=== PATIENT | female | born 1980 | race Caucasian/White ===

== ENCOUNTER 2021-01-26 15:56 | Emergency (ER) | payer MEDICAID, OTHER ==
[2021-01-28 13:54] LABS: SARS-CoV-2 PCR by NAA Not Detected (NotDetected)
== END 2021-01-26 17:05 | disposition home or self-care (01) ==
LOC: NAV ERS 15:56
DX: B34.9 Viral infection, unspecified (principal)
CPT/HCPCS: 99283; U0003; U0005

== ENCOUNTER 2023-04-23 12:36 | Emergency (ER) | payer OTHER | END 2023-04-23 14:05 | disposition home or self-care (01) | LOC: NAV ERS 12:36 | DX: J06.9 Acute upper respiratory infection, unspecified (principal); I10 Essential (primary) hypertension; K52.9 Noninfective gastroenteritis and colitis, unspecified; Z20.822 Contact with and (suspected) exposure to COVID-19; Z79.899 Other long term (current) drug therapy | CPT/HCPCS: 87635; 87804; 99283 ==

== ENCOUNTER 2023-05-10 07:24 | Emergency (ER) | payer OTHER ==
[2023-05-10] MEDS ORDERED: Ibuprofen 800 MG TAB ONE (08:43)
== END 2023-05-10 09:31 | disposition home or self-care (01) ==
LOC: NAV ERS 07:24
DX: U07.1 COVID-19 (principal); K21.9 Gastro-esophageal reflux disease without esophagitis; E11.9 Type 2 diabetes mellitus without complications; Z79.84 Long term (current) use of oral hypoglycemic drugs; Z79.899 Other long term (current) drug therapy
CPT/HCPCS: 87635; 87804; 99283